=== PATIENT | female | born 2000 | race Caucasian/White ===

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

== ENCOUNTER → 2020-10-22 14:39 | Outpatient (CLI) | payer OTHER, SELFPAY ==
[2020-10-22 16:06] VITALS: BMI 28.1
== END ==
PROVIDERS: PCP Nurse Practitioner Family; Visit Provider Nurse Practitioner Family
DX: E66.9 Obesity, unspecified (principal); Z71.3 Dietary counseling and surveillance
CPT/HCPCS: 97802

== ENCOUNTER → 2021-07-19 14:32 | Outpatient (CLI) | payer OTHER, SELFPAY ==
--- NOTE | 2021-07-19 14:47 | US_ITS ---
FINAL REPORT CLINICAL HISTORY: AMENORRHEA,UNSPECIFIED FINDINGS: Transvaginal sonographic images of the pelvis were obtained. The uterus measures 5.6 x 3.1 x 4.4 cm. The endometrium measures 4 mm, which is within normal limits. No uterine mass is identified. The right ovary measures 2.2 cm in length and left ovary measures 2.8 cm in length. Normal blood flow seen to the ovaries. There is no evidence of free fluid. IMPRESSION: No acute abnormality identified. Reviewed, Interpreted and Dictated by Ricardo Calero III, MD Transcribed by Mile Olmos Authenticated by Ricardo Calero III, MD on 07/19/2021 04:37:20 PM [facility]
[2021-07-19 15:05] LABS: Basophils # 0.1 K/mm3 (0-0.2); Eosinophils # 0.1 K/mm3 (0.0-0.4); Eosinophils % 1.3 % (0.1-12.0); Hematocrit 38.5 % (37.0-47.0); Hemoglobin 12.9 g/dL (12.2-16.2); Lymphocytes # 2.2 K/mm3 (0.7-4.5); Lymphocytes % 25.4 % (10-50); Mean Corpuscular HGB Conc 33.5 g/dL (31.8-35.4); Mean Corpuscular Hemoglobin 28.1 pg (27.0-31.2); Mean Corpuscular Volume 83.8 fl (81-99); Mean Platelet Volume 7.6 fl (7.4-10.4); Monocytes # 0.4 K/mm3 (0.1-1.0); Neutrophils % 68.2 % (37.0-80.0); Platelet Count 249 K/mm3 (142-424); Red Blood Count 4.59 M/mm3 (4.20-5.40); Red Cell Distribution Width 14.1 % (11.5-17.5); White Blood Count 8.8 K/mm3 (4.8-10.8)
[2021-07-19 15:27] LABS: Urine Pregnancy, HCG Qual. Negative (Negative)
[2021-07-19 15:50] LABS: Free T4 (Free Thyroxine) 1.16 ng/dl (0.78-2.19)
[2021-07-19 16:05] LABS: Thyroid Stimulating Hormone 1.05 uIU/mL (0.465-4.68)
== END ==
PROVIDERS: PCP Nurse Practitioner Family; Visit Provider Nurse Practitioner Family
DX: N91.2 Amenorrhea, unspecified (principal)
CPT/HCPCS: 36415; 76830; 81025; 84439; 84443; 85025